=== PATIENT | female | born 1950 | race Caucasian/White ===

== ENCOUNTER 2022-07-09 09:08 | Outpatient (REF) | payer OTHER, SELFPAY ==
--- NOTE | ~2022-07-09 | MR_ITS ---
EXAMINATION: MRI BRAIN WITHOUT CONTRAST CLINICAL INFORMATION: Memory loss. COMPARISON: Brain MRI 03/25/2022. TECHNIQUE: Multiplanar MR imaging of the brain was performed without contrast. FINDINGS: There is no intracranial mass effect or midline shift. No abnormal extra-axial collection. Lateral and third ventricles are normal. No hydrocephalus. There is degenerative arthrosis of the atlantodental joint. Midline structures are otherwise normal. No acute bone marrow signal changes. There are a few scattered nonspecific foci of T2 FLAIR signal hyperintensity within the periventricular white matter. No acute territorial infarct. No pathological magnetic susceptibility artifact. Intracranial vascular flow voids are maintained. There are trace mastoid effusions. Trivial mucosal thickening within ethmoid air cells. Globes and orbits are symmetric. MR/MR brain wo con w neuroquant IMPRESSION: There are a few scattered chronic small vessel ischemic changes within the periventricular white matter. Otherwise normal brain MRI. No evidence of acute territorial infarct or hemorrhage. No intracranial mass effect or hydrocephalus.
== END 2022-07-09 09:09 | disposition home or self-care (01) ==
LOC: HO.MRI 09:08
PROVIDERS: Visit Provider Psychiatry & Neurology Neurology
DX: R41.89 Other symptoms and signs involving cognitive functions and awareness (principal)
CPT/HCPCS: 70551; 76377

== ENCOUNTER → 2022-07-24 12:16 | Outpatient (BNVA) | payer OTHER, SELFPAY | PROVIDERS: Visit Provider Psychiatry & Neurology Neurology | DX: R41.89 Other symptoms and signs involving cognitive functions and awareness (principal); F41.9 Anxiety disorder, unspecified ==

== ENCOUNTER → 2022-10-29 09:51 | Outpatient (BNVA) | payer OTHER, SELFPAY | PROVIDERS: Visit Provider Nurse Practitioner Family | DX: R41.89 Other symptoms and signs involving cognitive functions and awareness (principal); F41.9 Anxiety disorder, unspecified; R06.83 Snoring; G47.10 Hypersomnia, unspecified ==

== ENCOUNTER 2023-02-06 10:50 | Outpatient (AMB) | payer OTHER, SELFPAY ==
--- NOTE | 2023-02-06 10:53 | A.OFFVIS_ITS ---
Intake Vital Signs 02/06/23 10:56 Weight 199 lb 2 oz BP 92/62 Blood Pressure Location Lt brachial Position Sitting Pulse 71 Pulse Source Pulse Oximeter Pulse Oximetry (%) 97 Oxygen Delivery Method Room Air Intake Visit Reasons: 3m f/u Mild cognitive impairment Intake Note: F/U Cognative impairement Meter Repairer Required: No Allergies No Known Allergies Allergy (Verified 02/06/23 10:54) HPI HPI Comments History of Present Illness Details 72 y/o female comes for follow up of cognitive impairment. Pt reports that she is forgetful and has trouble with directions sometimes. Pt denies misplacing things in the house. Pt denies any executive dysfunction, depression or anxiety. She drives locally. The home sleep study and neuropsychology evaluation ordered. However, pt canceled the home sleep study and can't remember she can't remember she canceled. Also the phone number given to patient to call to schedule sleep study but she forget it. She is on memantine 5 mg daily, denies side effects. Unable to do repeat MMSE, pt is very anxious to do the exam. [facility] Medical History Anxiety Breast CA HTN (hypertension) Hyperlipidemia Family History (Updated 02/06/23 @ 10:56 by Maryjane Massey CMA) Father Anxiety Paternal Grandmother Heart disease Brother Hypertension Social History (Updated 02/06/23 @ 10:56 by Maryjane Massey CMA) Alcohol intake: current Alcohol intake frequency: holidays/special occasions only Patient Tobacco Use Status: Former Tobacco user Quit Date: quit as a teen Review of Systems Const All systems reviewed & are unremarkable except as noted in HPI and below Physical Exam Const General: cooperative, healthy appearing and anxious Nutritional Appearance: obese Orientation/consciousness: oriented to person and oriented to place HEENT Head: Yes normal to inspection, Yes No palpable skull fracture present, Yes normocephalic and Yes atraumatic Neuro General: oriented to person, oriented to place, gait normal, tone normal, moves all extremities and no focal motor deficits Cranial nerves: Yes Facial sensation intact/muscles of mastication intact, Yes Intact sense of smell present, Yes Bilaterally intact EOM present, Yes Nystagmus not present, Yes Normal facial strength present, Yes Midline tongue present and Yes Symmetric palate elevation present Gait exam (Neuro): Normal gait present Motor exam (neuro): 5/5 motor strength present throughout and Normal motor muscle tone present throughout Coordination: [id number] test normal Assessment & Plan Assessment & Plan (1) Cognitive impairment: Code(s): R41.89 - Other symptoms and signs involving cognitive functions and awareness (2) Anxiety: Code(s): F41.9 - Anxiety disorder, unspecified (3) Snoring: Code(s): R06.83 - Snoring (4) Hypersomnia: Code(s): G47.10 - Hypersomnia, unspecified (5) Memory loss or impairment: Code(s): R41.3 - Other amnesia Plan Scheduling office number given again to patient to reschedule the home sleep study. Advised patient to under home sleep study to r/o sleep apnea. Neuropsychology office number provided, too. Advised patient to undergo PET brain scan. Increase memantine 5 mg BID. Medications: Changed From memantine 5 mg PO QPM 90 tabs 0RF To memantine 5 mg PO BID 90 days 180 tabs 1RF Coding Level of Care Code Est Pt Level 3 (68644) Diagnoses Cognitive impairment R41.89 Anxiety F41.9 Snoring R06.83 Hypersomnia G47.10 Memory loss or impairment R41.3
[2023-02-06 10:56] VITALS: BP 92/62; PULSE 71; O2SAT 97
== END 2023-02-06 11:14 | disposition home or self-care (01) ==
PROVIDERS: Visit Provider Nurse Practitioner Family
DX: R41.89 Other symptoms and signs involving cognitive functions and awareness (principal); F41.9 Anxiety disorder, unspecified; R06.83 Snoring; G47.10 Hypersomnia, unspecified; R41.3 Other amnesia
CPT/HCPCS: 99213

== ENCOUNTER → 2023-02-06 10:50 | Outpatient (BNVA) | payer OTHER, SELFPAY | PROVIDERS: Visit Provider Nurse Practitioner Family ==